=== PATIENT | female | born 1985 | race Two or more races ===

== ENCOUNTER 2019-02-07 16:45 | Outpatient (CLI) | payer OTHER ==
[2019-02-07] MEDS ORDERED: GADOBUTROL 10 MMOL/10 ML VIAL ONE (16:50)
[2019-02-07] MEDS ORDERED: GADOBUTROL 10 MMOL/10 ML VIAL IVP ONE (17:30)
--- NOTE | 2019-02-08 07:50 | MRI Report ---
Reason: HEARING LOSS Procedure Date: 02/07/2019 Accession Number: [id number] Procedure: MRI - Brain W/WO CPT Code: Final Report FULL RESULT: EXAM: MRI BRAIN WITHOUT AND WITH CONTRAST EXAM DATE: 02/07/2019 05:41 PM. CLINICAL HISTORY: Right-sided hearing loss. COMPARISON: None. TECHNIQUE: Multiplanar, multisequence T1-weighted and fluid-sensitive MR sequences of the brain were performed before and after administration of intravenous contrast. Sequences optimized for routine and IAC evaluation. Other: None. IV Contrast: 10 cc Gadavist. FINDINGS: Brain Volume: Normal for age. Parenchyma: No acute hemorrhage, mass, or infarct. Normal nevarez matter and white matter signal intensity is identified. No abnormal enhancement. Ventricles/Cisterns: The ventricles, sulci, and cisterns are normal. No abnormal extra-axial fluid collection or hemorrhage. Orbits: Symmetric and unremarkable. Sella Turcica: The pituitary gland, cavernous sinuses, suprasellar cistern and optic chiasm are unremarkable. IAC: Symmetric and unremarkable. No mass or abnormal enhancement is seen within the IAC or CPA cisterns. The inner ear structures are unremarkable. Vasculature: Normal signal flow void is seen in the major arterial structures at the skull base. The dural sinuses are patent and enhance normally. Sinuses: No acute sinus disease. Bones: No focal pathologic appearing marrow signal changes. Other: The visualized nasopharynx and infratemporal fossa are unremarkable. IMPRESSION: 1. Normal MRI of the brain without and with contrast. No acute abnormality. 2. Normal MRI of the IAC and CPA cisterns. The inner ear structures are unremarkable. RADIA
== END 2019-02-07 16:46 | disposition home or self-care (01) ==
LOC: DI 16:45
PROVIDERS: ATTEND Family Medicine
DX: H91.91 Unspecified hearing loss, right ear (principal)
CPT/HCPCS: 70553; A9585

== ENCOUNTER 2019-08-18 08:32 | Emergency (ER) | payer OTHER ==
[2019-08-18] MEDS ORDERED: HYDROmorphone 1 MG/ML CARPUJECT IM STA (09:49)
[2019-08-18] MEDS ORDERED: KETOROLAC 60 MG/2 ML VIAL IM STA (09:49)
--- NOTE | 2019-08-18 09:52 | ED Physician Documentation ---
History of Present Illness - Stated complaint Stated Complaint: NECK PX/DOBBS - Chief complaint Chief Complaint: General - History obtained from History obtained from: Patient - Additonal information Additional information: Patient comes emergency department complaining of neck pain that started yesterday when she woke up from sleep. She states that she had some degree of neck pain throughout the day and that it just felt very tight. She states that in the evening, she spent some time on her phone, and that she noticed that the neck pain got significantly worse after bending her head down to look at her phone. She states that she began to get a bad headache at that time. She went to bed and did not sleep very well for some time because of the pain, but then was finally able to go to sleep. She states when she woke up, the headache was not so bad, but that her neck was very tight and she could not turn her head from side to side. She states is also hard to flex her neck, secondary to pain and tightness. Patient states that in the night, she began to get nauseated, but did not vomit. Patient denies any fevers or chills. She states that the light gives her somewhat of a headache. She denies any pain in the spine itself. She states the pain and tightness starts in the back of her scalp and goes down to about her mid back. Patient denies any injury. No diarrhea. No malaise. No chest symptoms. No recent illness or sick contact.No other complaints at this time. Review of Systems Ten Systems: 10 systems reviewed and negative Constitutional: reports: Reviewed and negative Eyes: reports: Reviewed and negative Ears: reports: Reviewed and negative Nose: reports: Reviewed and negative Throat: reports: Reviewed and negative Cardiac: reports: Reviewed and negative Respiratory: reports: Reviewed and negative GI: reports: Nausea : reports: Reviewed and negative Skin: reports: Reviewed and negative Musculoskeletal: reports: Neck pain, Back pain Neurologic: reports: Reviewed and negative Psychiatric: reports: Reviewed and negative Endocrine: reports: Reviewed and negative Immunocompromised: reports: Reviewed and negative PD PAST MEDICAL HISTORY - Past Medical History Past Medical History: No - Past Surgical History 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 - Present Medications Home Medications: Ambulatory Orders Medication Instructions Recorded Confirmed Cyclobenzaprine [Flexeril] 10 mg PO TID PRN #10 tablet 05/25/20 Hydrocodone/Acetaminophen 1 - 2 each PO Q6H PRN #10 tablet 08/18/19 [Hydrocodon-Acetaminophen 5-325] Isotretinoin [Claravis] 40 mg PO BID 08/18/19 08/18/19 - Allergies Allergies/Adverse Reactions: Allergies Allergy/AdvReac Type Severity Reaction Status Date / Time No Known Drug Allergies Allergy Verified 08/18/19 08:42 - Social History Does the pt smoke?: No Smoking Status: Never smoker Does the pt drink ETOH?: No Does the pt have substance abuse?: No - Immunizations Immunizations: TDAP >10years/unknown PD ED PE NORMAL - Vitals Vital signs reviewed: Yes - General General: Alert and oriented X 3, No acute distress, Well developed/nourished, Other (Patient appears mildly uncomfortable, but otherwise in no apparent distress) - HEENT HEENT: Atraumatic, PERRL, EOMI, Moist mucous membranes - Neck Neck: Other (Patient is tenderness to palpation over her bilateral trapezius distribution. She also has tenderness over her lateral neck musculature bilaterally. Patient does have tension throughout her neck musculature. She has limited range of motion with minimal ability to rotate her head from side to side. 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 The patient was treated symptomatically with IM Toradol and Dilaudid, and I felt she was stable for discharge home. I have prescribed analgesia and muscle relaxant for at home. We have discussed follow- up with her primary care physician as well as the usual indications for return. Departure - Departure Disposition: Home, Self Care Clinical Impression: Neck muscle spasm, Torticollis, acute Condition: Stable Instructions: ED Spasm Neck No Injury Prescriptions: Cyclobenzaprine [Flexeril] 10 mg PO TID PRN #10 tablet PRN Reason: Spasms Hydrocodone/Acetaminophen [Hydrocodon-Acetaminophen 5-325] 1 - 2 each PO Q6H PRN #10 tablet PRN Reason: pain Comments: You have been prescribed medication for pain and for muscle relaxation. Because both of these medications are sedating, you should try taking 1 or the other, or you may try taking half a tablet of each and work up to what ever dose or combination works for you. It is not advised that you take 1 tablet of each together before trying a smaller dose or 1 medication individually.
[2019-08-18 10:47] VITALS: BP 118/76
== END 2019-08-18 10:52 | disposition home or self-care (01) ==
LOC: ED 08:32
DX: M43.6 Torticollis (principal)
CPT/HCPCS: 96372; 99283; 99284; J1170

== ENCOUNTER 2021-02-16 17:56 | Emergency (ER) | payer OTHER ==
[2021-02-16 18:36] LABS: BILIRUBIN,URINE NEGATIVE (NEGATIVE); GLUCOSE, URINE (UA) NEGATIVE (NEGATIVE); KETONES,URINE (UA) NEGATIVE (NEGATIVE); LEUKOCYTE ESTERASE, URINE TRACE (NEGATIVE); NITRITE,URINE NEGATIVE (NEGATIVE); OCCULT BLOOD,URINE LARGE (NEGATIVE); PROTEIN,URINE TRACE mg/dL (NEGATIVE); UROBILINOGEN,URINE 0.2 (NORMAL) E.U./dL (NORMAL)
[2021-02-16 18:37] LABS: CLARITY,URINE HAZY (CLEAR)
[2021-02-16 18:38] LABS: HCG UR QUAL NEGATIVE
[2021-02-16 18:49] LABS: BACTERIA,URINE Few /HPF (None Seen); RBC,URINE 0-5 /HPF (0-5); SQUAMOUS EPITHELIAL CELL,UR FEW Squamous (<= Few); WBC,URINE >25 /HPF (0-5)
--- NOTE | 2021-02-16 19:32 | ED Physician Documentation ---
PD HPI FEMALE - Stated complaint Stated Complaint: FEMALE - Chief complaint Chief Complaint: UTI - History obtained from History obtained from: Patient - History of Present Illness Timing - onset: How many weeks ago ( 1/2) Timing - duration: Weeks (onset about 1 1/2 weeks ago of UTI/dysuria/some flank pain and Dx with UTI at [facility]. Rx with Macrobid and pyridium and was improved. Symtpoms coming back now finished the Macrobid 3 days ago.) Timing - details: Gradual onset, Still present Associated symptoms: Back pain, Dysuria, Urinary frequency. No: Fever, Vaginal pain, Vaginal discharge Similar symptoms before: Has not had sx before Recently seen: Clinic Review of Systems Constitutional: reports: Myalgias. denies: Fever Nose: denies: Rhinorrhea / runny nose, Congestion Throat: denies: Sore throat Respiratory: denies: Cough : reports: Dysuria, Frequency. 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 - Present Medications Home Medications: Ambulatory Orders Medication Instructions Recorded Confirmed Cyclobenzaprine [Flexeril] 10 mg PO TID PRN #10 tablet 08/18/19 Hydrocodone/Acetaminophen 1 - 2 each PO Q6H PRN #10 tablet 08/18/19 [Hydrocodon-Acetaminophen 5-325] ISOtretinoin [Claravis] 40 mg PO BID 08/18/19 08/18/19 Ibuprofen [Motrin] 600 mg PO TID 5 Days #15 tab 02/16/21 Phenazopyridine HCl [Pyridium] 100 mg PO TID PRN #15 tablet 02/16/21 cephALEXin [Keflex] 500 mg PO TID #20 cap 02/16/21 - Allergies Allergies/Adverse Reactions: Allergies Allergy/AdvReac Type Severity Reaction Status Date / Time No Known Drug Allergies Allergy Verified 02/16/21 18:06 - Social History Does the pt smoke?: No Smoking Status: Never smoker Does the pt drink ETOH?: No Does the pt have substance abuse?: No - Immunizations Immunizations: TDAP >10years/unknown PD ED PE NORMAL - Vitals Vital signs reviewed: Yes - General General: Alert and oriented X 3, No acute distress, Well developed/nourished - Abdomen Abdomen: Soft, Non tender - Female Female : Deferred - Rectal Rectal: Deferred - Back Back: No CVA TTP - Derm Derm: Normal color, Warm and dry Results - Vitals Vitals: Vital Signs - 24 hr 02/16/21 02/16/21 18:01 20:05 Temperature 36.6 C Heart Rate 67 74 Respiratory 15 16 Rate Blood Pressure 122/68 127/78 O2 Saturation 99 97 Oxygen O2 Source Room air - Labs Labs: Microbiology 02/16/21 18:17 Urine Culture - Final Urine,Clean Catch 50-100,000 COLONIES/ML Polymicrobial growth including potential pathogens. This is suggestive of skin or other contamination. Laboratory Tests 02/16/21 18:17 Urine Color YELLOW Urine Clarity HAZY Urine pH 6.0 Ur Specific Heth 1.025 Urine Protein TRACE Urine Glucose (UA) NEGATIVE Urine Ketones NEGATIVE Urine Occult Blood LARGE H Urine Nitrite NEGATIVE Urine Bilirubin NEGATIVE Urine Urobilinogen 0.2 (NORMAL) Ur Leukocyte Esterase TRACE H Urine RBC 0-5 Urine WBC >25 H Ur Squamous Epith Cells FEW Squamous Urine Bacteria Few Ur Microscopic Review INDICATED Urine Culture Comments INDICATED Urine HCG, Qual NEGATIVE PD MEDICAL DECISION MAKING - ED course Complexity details: considered differential (recurring UTI symptoms with flank pain. Presume mild pyelo and reasonable that the macrobid did not completely clear as low tissue penetrance. Can treat with other antibiotic. ), d/w patient Departure - Departure Disposition: 01 Home, Self Care Clinical Impression: Urinary tract infection Qualifiers: Urinary tract infection type: acute pyelonephritis Qualified Code(s): N10 - Acute pyelonephritis Condition: Stable Record reviewed to determine appropriate education?: Yes Instructions: ED UTI Cystitis Female Follow-Up: MELLISSA ACOSTA MD [Primary Care Provider] - Prescriptions: cephALEXin [Keflex] 500 mg PO TID #20 cap Ibuprofen [Motrin] 600 mg PO TID 5 Days #15 tab Phenazopyridine HCl [Pyridium] 100 mg PO TID PRN #15 tablet PRN Reason: Abdominal Pain Comments: Keflex antibiotic three times daily as directed. Ibuprofen three times daily for inflammation and pain with food. Add Pyridium as needed for discomfort urinating. I anticipate improvement in few days and resolution over 3-5 days. Recheck if not improving. Stay well hydrated. I transmitted the scripts to [facility] pharmacy. Discharge Date/Time: 02/16/21 20:09
[2021-02-16] MEDS ORDERED: PHENAZOPYRIDINE 100 MG TABLET PO STA (19:43)
[2021-02-16] MEDS ORDERED: IBUPROFEN 600 MG TABLET PO STA (19:43)
[2021-02-16] MEDS ORDERED: cephALEXin 250 MG CAPSULE PO STA (19:43)
[2021-02-16 20:08] VITALS: BP 127/78
== END 2021-02-16 20:09 | disposition home or self-care (01) ==
LOC: ED 17:56
DX: N10 Acute pyelonephritis (principal)
CPT/HCPCS: 81001; 81025; 87086; 99283; A9270; 81003